=== PATIENT | female | born 1980 | race Caucasian/White ===

== ENCOUNTER 2017-07-18 08:25 | Inpatient (IN) | END 2017-07-21 16:05 | disposition home or self-care (01) | DRG 775 ==

== ENCOUNTER 2018-08-09 17:01 | Emergency (ER) | payer OTHER ==
[~2018-08-09] VITALS: Ht 165.1 cm; Wt 52.4 kg
[2018-08-09 17:09] VITALS: Ht 165.1 cm; Wt 52.4 kg
[2018-08-09] MEDS ORDERED: LABE200T25 PO ×2 (18:38→18:39)
--- NOTE | 2018-08-09 18:44 | ERD ---
ER Documentation Chief Complaint Chief Complaint Sent from for eval HTN and HPI 38-year-old female with a known history of hypertension is a at approximately 6 weeks who was sent by primary OB clinic for evaluation of elevated blood pressure. The patient has no symptoms. She has been without her blood pressure medication for greater than 1 year. She denies any headache chest pain or shortness of breath. She denies abdominal pain or vaginal bleeding or spotting. ROS All systems reviewed and are negative except as per history of present illness. Medications Home Meds Active Scripts Labetalol Hcl* (Labetalol Hcl*) 200 Mg Tablet, 200 MG PO BID for 30 Days, TAB Prov:MAGALY DELUCA MD 08/09/18 Labetalol Hcl* (Labetalol Hcl*) 200 Mg Tablet, 200 MG PO TID for 30 Days, TAB Prov:MAGALY DELUCA MD 08/09/18 Allergies Allergies: Coded Allergies: ibuprofen (Verified Allergy, Severe, SWELLING FACE,EYES,MOUTH, 07/18/17) PMhx/Soc History of Surgery: Yes (ATUL, x 1) Anesthesia Reaction: No Hx Neurological Disorder: No Hx Respiratory Disorders: No Hx Cardiac Disorders: Yes (HTN) Hx Psychiatric Problems: No Hx Miscellaneous Medical Probl: No Hx Alcohol Use: No Hx Substance Use: No Hx Tobacco Use: No Smoking Status: Never smoker FmHx Family History: No diabetes Physical Exam Vitals Vital Signs Date Temp Pulse Resp B/P (MAP) Pulse Ox O2 O2 Flow FiO2 Time Delivery Rate 08/09/18 18 162/102 100 Room Air 17:46 (122) 08/09/18 97.1 82 20 192/111 100 17:09 (138) Physical Exam General: Well developed, well nourished, no acute distress Head: Normocephalic, atraumatic. Eyes: Pupils equally reactive, EOM intact ENT: Moist mucous membranes Neck: Supple, no lymphadenopathy Respiratory: Lungs clear bilaterally, no distress Cardiovascular: RRR, no murmurs, rubs, or gallops Abdominal: Soft, non-tender, non-distended, no peritoneal signs : Deferred MSK: No edema, no unilateral swelling, 5/5 strength Neurologic: Alert and oriented, moving all extremities, normal speech, no focal weakness, no cerebellar signs Skin: No rash Psych: Normal mood Procedures/MDM The patient does not meet diagnostic criteria for preeclampsia given known history of hypertension and only 6-week gestation . She is asymp tomatic without signs or symptoms concerning for endorgan dysfunction. I was able to speak to Dr. Day, referring [facility]. I discussed that her blood pressure improved to the 160 range. She is asymptomatic. She would like the patient initiated on labetalol 200 mg 2-3 times daily. I believe twice daily would be most appropriate given the patient has been off her medication f or 2 years. At this point the patient has no evidence of endorgan dysfunction and can be safely discharged with close primary care and [facility] follow-up. The patient does not have an identifiable emergent medical condition that warrants inpatient hospitalization at this time. The patient is deemed safe for discharge with outpatient follow-up. We discussed follow up with the patient's primary care doctor within 24 to 48 hours as needed. We also discussed return to the emergency room for worsening symptoms or worsening condition. Outpatient referral: [facility] Discharge Medications: Labetalol 200 mg twice daily Departure Diagnosis: Primary Impression: Essential hypertension Additional Impression: Asymptomatic hypertensive urgency Condition: Stable Patient Instructions: Hypertension, Established, Out Of Control Referrals: SHELBY DAY Additional Instructions: Please follow-up with your [facility] and primary care doctor to manage her blood pressure and . MAGALY DELUCA MD Aug 09, 2018 18:44
[2018-08-09 18:47] VITALS: BP 171/103; PULSE 78; RESP 16
== END 2018-08-09 18:50 | disposition home or self-care (01) ==
LOC: E/R 17:01
DX: O10.011 Pre-existing essential hypertension complicating pregnancy, first trimester (principal); O13.1 Gestational [pregnancy-induced] hypertension without significant proteinuria, first trimester; Z3A.01 Less than 8 weeks gestation of pregnancy
CPT/HCPCS: 99283